=== PATIENT | male | born 1985 | race African-American/Black ===

== ENCOUNTER 2023-11-12 09:33 | Inpatient (IN) | payer OTHER, SELFPAY ==
[2023-11-12] MEDS ORDERED: NOREPINEPHRINE 8 MG/250 ML-D5W 250 ML ONE (09:51)
[2023-11-12] MEDS ORDERED: Aspirin 300 MG Suppository ONE (09:53)
[2023-11-12] MEDS ORDERED: Fentanyl CADD 100 ML IV SCH ×2 (10:00→16:15)
[2023-11-12 10:04] LABS: #Basophils 0.06 10x3/uL (0.0-0.2); %Basophils 0.5 % (0.0-1.0); %Eosinophils 1.1 % (0.0-10.0); %Lymphocytes 33.7 % (21.0-51.0); %Monocytes 4.9 % (0.0-10.0); %Neutrophils 57.3 % (42.0-75.0); Hematocrit 45.6 % (42.0-52.0); Hemoglobin 14.2 g/dL (14.0-18.0); Mean Corpuscular HGB CONC 31.1 g/dL (32.0-36.0); Mean Corpuscular Hemoglobin 30.6 pg (27.0-31.0); Mean Corpuscular Volume 98.3 fL (78.0-98.0); Mean Platelet Volume 11.2 fL (7.4-10.4); Platelet Count 230 10x3/uL (130-400); Red Blood Cell (RBC) Count 4.64 mill/uL (4.70-6.10)
[2023-11-12 10:14] LABS: Analyzer IN Cardio ER; Base Excess (BEa) -14.9 mEq/L (-2.0 to +3.0); CO2 Tension 48.3 mmHg (35.0-45.0); Calcium, Ionized (arterial) 1.16 mmol/L (1.12-1.30); Carboxyhemoglobin (COHb) 0.3 gm% (0.0-3.0); Hematocrit-ABG 44 % (42.0-52.0); Hemoglobin (Hb) 14.8 g/dL (14.0-18.0); O2 Tension (PaO2), arterial 83.9 mmHg (80.0-100.0); Potassium - ABG Lab 4.24 mmol/L (3.70-5.30)
[2023-11-12 10:17] LABS: ALT (SGPT) 71 U/L (8-55); AST (SGOT) 72 U/L (5-34); Acetaminophen Less than 10 mcg/mL (10.0-30.0); Albumin 3.1 g/dL (3.5-5.0); Alcohol Less than 10.0 mg/dL (Less than 10); Alkaline Phosphatase 53 U/L (40-110); Anion Gap 27 mmol/L (10-20); BUN (Urea Nitrogen) 16 mg/dL (8.9-20.6); Bilirubin, Total 0.5 mg/dL (0.2-1.2); CK (CPK) 619 U/L (30-200); Calc. Creatinine Clearance 0 mL/min (70-130); Calcium 8.1 mg/dL (7.8-10.44); Carbon Dioxide 11 mmol/L (22-29); Chloride 107 mmol/L (98-107); Estimated GFR 48; Globulin 2.6 g/dL (2.4-3.5); Glucose 225 mg/dL (70-105); Lipase 21 U/L (8-78); Magnesium 2.7 mg/dL (1.6-2.6); Potassium 4.4 mmol/L (3.5-5.1); Protein, Total 5.7 g/dL (6.0-8.3); Salicylate Less than 8.0 mg/dL (15.0-30.0); Sodium 141 mmol/L (136-145)
[2023-11-12 10:18] LABS: Actual Bicarbonate (HCO3a) 14.7 mEq/L (22-28); Puncture Site RBA
[2023-11-12 10:19] LABS: ALV-art Gradient 568.725 mmHg (0-20)
[2023-11-12 10:32] LABS: Troponin I 2.362 ng/mL (< 0.028)
[2023-11-12] MEDS ORDERED: Iopamidol 370 76% 100 ML VIAL ONE (10:43)
[2023-11-12 10:46] LABS: INR-International Normal Ratio 1.3; Prothrombin Time 15.9 sec (12.0-14.7)
[2023-11-12 11:26] LABS: Bilirubin Negative (Negative); Blood, Urine 2+ (Negative); CAUTI Indications for Culture Alt mental st,lethar; Clarity Extra Turbid (Clear); Glucose, Urine (Dipstick) 150 mg/dL (Negative); Ketone, Urine Negative (Negative); Leukocyte Negative Leu/uL (Negative); Nitrite Negative (Negative); Protein, Urine (Dipstick) 300 mg/dL (Neg-Trace); RBC/HPF 21-50 HPF (0-3); Specific Gravity, Urine 1.013 (1.002-1.036); Squamous Epithelial None Seen HPF (0-3); Urobilinogen Normal mg/dL (Less than 2)
[2023-11-12] MEDS ORDERED: Acetaminophen 650 MG Suppository PR PRN (11:26)
[2023-11-12] MEDS ORDERED: Ondansetron PF 4 MG/2 ML Vial IVP PRN (11:26)
[2023-11-12 11:28] LABS: Amphetamine Not Detected (NotDetected); Barbiturates Screen Not Detected (NotDetected); Benzodiazepine Screen Not Detected (NotDetected); Cocaine Metabolite Screen Not Detected (NotDetected); Methadone Not Detected (NotDetected); Methamphetamine Not Detected (NotDetected); Opiate Screen Not Detected (NotDetected); Oxycodone Screen Not Detected (NotDetected); Phencyclidine (PCP) Not Detected (NotDetected); THC/Cannabinoid Screen Not Detected (NotDetected); Tricyclic Screen Not Detected (NotDetected)
[2023-11-12] MEDS ORDERED: Dextrose 5% in Water 1,000 ML IV PRN (11:28)
[2023-11-12] MEDS ORDERED: Glucagon 1 MG/ML KIT IM PRN (11:28)
[2023-11-12] MEDS ORDERED: Dextrose 50% Abboject 50 ML SYRINGE SLOW IVP PRN (11:28)
[2023-11-12 11:36] LABS: Sperm/HPF 4+ HPF (None Seen)
[2023-11-12 11:37] LABS: Bacteria/HPF Rare-Few HPF (None Seen)
[2023-11-12 11:38] LABS: Urine Culture Reflex Yes Yes
[2023-11-12 12:37] LABS: Analyzer IN Cardio ER; Base Excess (BEa) -10.3 mEq/L (-2.0 to +3.0); CO2 Tension 31.2 mmHg (35.0-45.0); Calcium, Ionized (arterial) 1.12 mmol/L (1.12-1.30); O2 Tension (PaO2), arterial 270.7 mmHg (80.0-100.0); Potassium - ABG Lab 4.29 mmol/L (3.70-5.30); pH, Arterial 7.295 (7.35-7.45)
[2023-11-12 12:40] LABS: Actual Bicarbonate (HCO3a) 14.8 mEq/L (22-28); Puncture Site RRA
[2023-11-12] MEDS ORDERED: Heparin 10,000 UNITS/ 10 ML VIAL ONE (13:10)
[2023-11-12] MEDS ORDERED: Nitroglycerin 50 MG/250 ML BOT 0 ML ONE (13:10)
[2023-11-12 13:11] LABS: Troponin I 7.351 ng/mL (< 0.028)
[2023-11-12] MEDS: Acetaminophen 325 MG TAB PO SCH (13:37)
[2023-11-12 13:40] LABS: Base Excess (BEa) -8.6 mEq/L (-2.0 to +3.0); Calcium, Ionized (arterial) 1.06 mmol/L (1.12-1.30); Carboxyhemoglobin (COHb) 0.4 gm% (0.0-3.0); Hematocrit-ABG 43 % (42.0-52.0); Hemoglobin (Hb) 14.5 g/dL (14.0-18.0); O2 Tension (PaO2), arterial 233.7 mmHg (80.0-100.0); Potassium - ABG Lab 4.01 mmol/L (3.70-5.30); pH, Arterial 7.398 (7.35-7.45)
[2023-11-12 13:42] LABS: Actual Bicarbonate (HCO3a) 14.1 mEq/L (22-28); CO2 Tension 23.4 mmHg (35.0-45.0); Puncture Site RRA
[2023-11-12] MEDS: Sodium Bicarbonate 150 mEq in Dextrose 5% IV SCH (14:07)
[2023-11-12] MEDS: Sodium Chloride 0.9% 1,000 ML IV SCH (14:07)
[2023-11-12 14:14] LABS: Lactic Acid 5.6 mmol/L (0.5-2.2)
[2023-11-12] MEDS ORDERED: Insulin Lispro 100 UNIT/ML 10 ML VIAL SC PRN ×2 (14:37→14:45)
[2023-11-12 14:46] LABS: Troponin I 10.139 ng/mL (< 0.028)
[2023-11-12] MEDS ORDERED: NOREPINEPHRINE 8 MG/250 ML-D5W 250 ML IVPB SCH (15:15)
[2023-11-12] MEDS ORDERED: Sodium Chloride 0.9% 200 ML IV PRN (15:17)
[2023-11-12] MEDS ORDERED: Fentanyl BOLUS 250 ML IVPB PRN (16:15)
[2023-11-12] MEDS ORDERED: Morphine 2 MG/ML VIAL SLOW IVP PRN (16:15)
[2023-11-12] MEDS ORDERED: DISCONTINUE PREVIOUS NARCOTIC PAIN MEDICATIONS AND BENZODIAZEPINES FS SCH (16:15)
[2023-11-12] MEDS ORDERED: Propofol BOLUS 1,000 MG/100 ML VIAL IV PRN (16:15)
[2023-11-12] MEDS: Sodium Chloride 0.9% 250 ML IV SCH (16:16)
[2023-11-12] MEDS: Lorazepam 2 MG/ML VIAL ONE (16:24)
[2023-11-12] MEDS: Lorazepam 2 MG/ML VIAL SLOW IVP PRN (16:24)
[2023-11-12] MEDS: Amiodarone 450 MG in Dextrose 5% in Water 250 ML IVPB SCH (17:21)
[2023-11-12] MEDS: Propofol 1,000 MG/100 ML VIAL IV PRN (17:27)
[2023-11-12 18:57] LABS: Lactic Acid 2.7 mmol/L (0.5-2.2)
[2023-11-12] MEDS: Heparin 5,000 UNITS/ML VIAL SC SCH (20:26)
[2023-11-12] MEDS: Famotidine/PF 20 mg/2ml Vial SLOW IVP SCH (20:26)
[2023-11-13 04:35] LABS: #Basophils Less than 0.03 10x3/uL (0.0-0.2); #Eosinphils Less than 0.03 10x3/uL (0.0-0.7); %Basophils 0.2 % (0.0-1.0); %Lymphocytes 20.4 % (21.0-51.0); %Monocytes 9.8 % (0.0-10.0); %Neutrophils 69.2 % (42.0-75.0); Hematocrit 43.6 % (42.0-52.0); Hemoglobin 14.6 g/dL (14.0-18.0); Mean Corpuscular HGB CONC 33.5 g/dL (32.0-36.0); Mean Corpuscular Hemoglobin 29.6 pg (27.0-31.0); Mean Corpuscular Volume 88.4 fL (78.0-98.0); Mean Platelet Volume 12.4 fL (7.4-10.4); Platelet Count 200 10x3/uL (130-400); RBC Distribution Width 12.4 % (11.5-14.5); Red Blood Cell (RBC) Count 4.93 mill/uL (4.70-6.10)
[2023-11-13 05:00] LABS: Hemoglobin A1c 5.3 % (4.0-6.0)
[2023-11-13 05:25] LABS: ALT (SGPT) 95 U/L (8-55); AST (SGOT) 101 U/L (5-34); Albumin 2.8 g/dL (3.5-5.0); Alkaline Phosphatase 38 U/L (40-110); Anion Gap 15 mmol/L (10-20); BUN (Urea Nitrogen) 23 mg/dL (8.9-20.6); Bilirubin, Total 0.9 mg/dL (0.2-1.2); Calc. Creatinine Clearance 52 mL/min (70-130); Calcium 7.8 mg/dL (7.8-10.44); Carbon Dioxide 16 mmol/L (22-29); Cardiac Risk 4.4 (Less than 4.5); Chloride 106 mmol/L (98-107); Cholesterol 140 mg/dl (< 200 Desired); Estimated GFR 29; Globulin 2.4 g/dL (2.4-3.5); Glucose 109 mg/dL (70-105); HDL Cholesterol 32 mg/dL (>60 Neg Risk); Magnesium 2.2 mg/dL (1.6-2.6); Potassium 4.2 mmol/L (3.5-5.1); Protein, Total 5.2 g/dL (6.0-8.3); Sodium 133 mmol/L (136-145); Triglycerides 503 mg/dL (Less than 150)
[2023-11-13 07:16] LABS: Actual Bicarbonate (HCO3a) 16.1 mEq/L (22-28); Calcium, Ionized (arterial) 1.06 mmol/L (1.12-1.30); Carboxyhemoglobin (COHb) 0.8 gm% (0.0-3.0); Hematocrit-ABG 45 % (42.0-52.0); Hemoglobin (Hb) 15.3 g/dL (14.0-18.0); O2 Tension (PaO2), arterial 90.9 mmHg (80.0-100.0); Potassium - ABG Lab 4.42 mmol/L (3.70-5.30)
[2023-11-13 07:17] LABS: CO2 Tension 22.1 mmHg (35.0-45.0); Puncture Site RRA
[2023-11-13 07:18] LABS: ALV-art Gradient 166.675 mmHg (0-20)
[2023-11-13] MEDS: Sodium Chloride 0.9% 1,000 ML IV SCH (08:57)
[2023-11-13] MEDS ORDERED: Dexmedetomidine In 0.9 % NaCl 100 ML IVPB SCH (10:00)
[2023-11-13] MEDS: DOBUTamine 500 mg/250 ml 250 ML IVPB SCH (12:27)
[2023-11-13] MEDS ORDERED: VANC IVPB PRN (12:36)
[2023-11-13] MEDS: Acetaminophen 500 MG TAB PER TUBE SCH (12:42)
[2023-11-13] MEDS: cefTRIAXone\\ROCEPHIN 2 GM in Sodium Chloride 0.9% 100 ML IVPB SCH (14:46)
[2023-11-13] MEDS: Vancomycin (BATCH) 2.5 GM in Premix 1 BAG IVPB SCH (14:58)
[2023-11-13] MEDS: Furosemide 40 MG (4 mL) VIAL SLOW IVP SCH (22:09)
[2023-11-14 07:03] LABS: Hematocrit 46.7 % (42.0-52.0); Hemoglobin 15.1 g/dL (14.0-18.0); Mean Corpuscular HGB CONC 32.3 g/dL (32.0-36.0); Mean Corpuscular Hemoglobin 29.9 pg (27.0-31.0); Mean Corpuscular Volume 92.5 fL (78.0-98.0); Mean Platelet Volume 11.5 fL (7.4-10.4); Platelet Count 154 10x3/uL (130-400); RBC Distribution Width 12.8 % (11.5-14.5); Red Blood Cell (RBC) Count 5.05 mill/uL (4.70-6.10)
[2023-11-14 07:12] LABS: Lactic Acid 1.7 mmol/L (0.5-2.2)
[2023-11-14 07:15] LABS: Anion Gap 15 mmol/L (10-20); BUN (Urea Nitrogen) 28 mg/dL (8.9-20.6); Calc. Creatinine Clearance 50 mL/min (70-130); Calcium 8.6 mg/dL (7.8-10.44); Carbon Dioxide 18 mmol/L (22-29); Chloride 111 mmol/L (98-107); Estimated GFR 28; Glucose 137 mg/dL (70-105); Potassium 4.6 mmol/L (3.5-5.1); Sodium 139 mmol/L (136-145)
[2023-11-14] MEDS: Furosemide 40 MG (4 mL) VIAL SLOW IVP SCH (10:01)
[2023-11-14] MEDS: Dexmedetomidine 1,000 MCG in NS 250 mL IVPB SCH (10:06)
[2023-11-14] MEDS: Vancomycin 1 GM in Premix 1 BAG IVPB SCH (14:03)
[2023-11-14] MEDS: Atorvastatin Calcium 40 MG TAB PO SCH (21:02)
[2023-11-15 04:12] VITALS: BMI 36.3
[2023-11-15 07:37] LABS: Vancomycin, Random 21.5 ug/mL (See Comment)
[2023-11-15] MEDS: Carvedilol 3.125 MG TAB PO SCH ×2 (08:10→19:11)
[2023-11-15] MEDS: Famotidine/PF 20 mg/2ml Vial SLOW IVP SCH (08:10)
[2023-11-15 11:34] LABS: #Basophils 0.04 10x3/uL (0.0-0.2); %Basophils 0.4 % (0.0-1.0); %Eosinophils 0.4 % (0.0-10.0); %Lymphocytes 16.4 % (21.0-51.0); %Monocytes 10.3 % (0.0-10.0); %Neutrophils 72.1 % (42.0-75.0); Hematocrit 42.3 % (42.0-52.0); Hemoglobin 13.6 g/dL (14.0-18.0); Mean Corpuscular HGB CONC 32.2 g/dL (32.0-36.0); Mean Corpuscular Hemoglobin 29.8 pg (27.0-31.0); Mean Corpuscular Volume 92.6 fL (78.0-98.0); Mean Platelet Volume 12.2 fL (7.4-10.4); Platelet Count 145 10x3/uL (130-400); RBC Distribution Width 12.7 % (11.5-14.5); Red Blood Cell (RBC) Count 4.57 mill/uL (4.70-6.10)
[2023-11-15 11:53] LABS: Anion Gap 14 mmol/L (10-20); BUN (Urea Nitrogen) 24 mg/dL (8.9-20.6); Calc. Creatinine Clearance 61 mL/min (70-130); Calcium 8.4 mg/dL (7.8-10.44); Carbon Dioxide 22 mmol/L (22-29); Chloride 110 mmol/L (98-107); Estimated GFR 36; Glucose 110 mg/dL (70-105); Magnesium 2.1 mg/dL (1.6-2.6); Potassium 3.6 mmol/L (3.5-5.1); Sodium 142 mmol/L (136-145)
[2023-11-15] MEDS: hydrALAZINE 20 MG/ML VIAL SLOW IVP PRN (15:08)
[2023-11-15] MEDS: Acetaminophen 325 MG TAB PO PRN (15:45)
[2023-11-15] MEDS: Ondansetron ODT 4 MG TAB PO PRN (16:47)
[2023-11-16] MEDS: Famotidine 20 MG TAB PO SCH (08:30)
[2023-11-16] MEDS: Carvedilol 3.125 MG TAB PO SCH (08:36)
[2023-11-16] MEDS: Isosorbide Dinitrate 5 MG TAB PO SCH (20:53)
[2023-11-16] MEDS: hydrALAZINE 25 MG TAB PO SCH (20:53)
[2023-11-17 08:03] VITALS: BMI 36.3
[2023-11-17] MEDS: Carvedilol 6.25 MG TAB PO SCH (09:47)
[2023-11-18 10:37] LABS: #Basophils 0.05 10x3/uL (0.0-0.2); %Basophils 0.6 % (0.0-1.0); %Lymphocytes 15.3 % (21.0-51.0); %Neutrophils 67.7 % (42.0-75.0); Hematocrit 37.7 % (42.0-52.0); Hemoglobin 12.2 g/dL (14.0-18.0); Mean Corpuscular HGB CONC 32.4 g/dL (32.0-36.0); Mean Corpuscular Volume 92.6 fL (78.0-98.0); Mean Platelet Volume 11.6 fL (7.4-10.4); Platelet Count 161 10x3/uL (130-400); RBC Distribution Width 12.3 % (11.5-14.5); Red Blood Cell (RBC) Count 4.07 mill/uL (4.70-6.10)
[2023-11-18 10:51] LABS: Anion Gap 10 mmol/L (10-20); BUN (Urea Nitrogen) 15 mg/dL (8.9-20.6); Calc. Creatinine Clearance 93 mL/min (70-130); Calcium 8.5 mg/dL (7.8-10.44); Carbon Dioxide 24 mmol/L (22-29); Chloride 107 mmol/L (98-107); Estimated GFR 59; Glucose 146 mg/dL (70-105); Potassium 3.6 mmol/L (3.5-5.1); Sodium 137 mmol/L (136-145)
[2023-11-18] MEDS ORDERED: Morphine 2 MG/ML VIAL SLOW IVP PRN (12:47)
[2023-11-18] MEDS: Potassium Chloride 20 MEQ TAB PO SCH (13:54)
[2023-11-18] MEDS: Furosemide 40 MG TAB PO SCH (13:54)
[2023-11-18] MEDS: Cefdinir 300 MG CAP PO SCH (20:25)
[2023-11-19 05:10] LABS: #Basophils 0.05 10x3/uL (0.0-0.2); %Basophils 0.6 % (0.0-1.0); %Lymphocytes 20.7 % (21.0-51.0); %Monocytes 12.5 % (0.0-10.0); %Neutrophils 59.9 % (42.0-75.0); Hematocrit 40.5 % (42.0-52.0); Hemoglobin 12.9 g/dL (14.0-18.0); Mean Corpuscular HGB CONC 31.9 g/dL (32.0-36.0); Mean Corpuscular Hemoglobin 29.5 pg (27.0-31.0); Mean Corpuscular Volume 92.7 fL (78.0-98.0); Mean Platelet Volume 12.7 fL (7.4-10.4); Platelet Count 191 10x3/uL (130-400); RBC Distribution Width 12.4 % (11.5-14.5); Red Blood Cell (RBC) Count 4.37 mill/uL (4.70-6.10)
[2023-11-19 06:09] LABS: Anion Gap 14 mmol/L (10-20); BUN (Urea Nitrogen) 17 mg/dL (8.9-20.6); Calc. Creatinine Clearance 80 mL/min (70-130); Calcium 8.8 mg/dL (7.8-10.44); Carbon Dioxide 27 mmol/L (22-29); Chloride 107 mmol/L (98-107); Estimated GFR 50; Glucose 89 mg/dL (70-105); Potassium 3.7 mmol/L (3.5-5.1); Sodium 144 mmol/L (136-145)
[2023-11-19] MEDS: Furosemide 20 MG TAB PO SCH (09:26)
[2023-11-19] MEDS: Potassium Chloride 20 MEQ TAB PO SCH (09:26)
[2023-11-19] MEDS: Pantoprazole DR 40 MG TAB PO SCH (09:27)
[2023-11-19] MEDS: Lidocaine 4% Patch TD SCH (09:27)
[2023-11-19] MEDS: traMADol HCl 50 MG TAB PO PRN (20:37)
[2023-11-19] MEDS: Transdermal Patch Removal TOP SCH (20:41)
[2023-11-20] MEDS: Carvedilol 6.25 MG TAB PO SCH (10:15)
[2023-11-20] MEDS: Sacubitril 24MG/Valsartan 26 MG TAB PO SCH (10:15)
[2023-11-20] MEDS ORDERED: Gentamicin 80 MG/2 ML VIAL ONE (10:25)
[2023-11-20] MEDS ORDERED: CEFAZOLIN 2 GM VIAL ONE (10:26)
[2023-11-20] MEDS: Vancomycin (BATCH) 1.5 GM in Premix 1 BAG IVPB SCH (11:21)
[2023-11-20] MEDS ORDERED: Propofol 500 MG/50 ML VIAL ONE (12:49)
[2023-11-20] MEDS ORDERED: Midazolam HCl 2 mg/2 ml Vial ONE (12:49)
[2023-11-20] MEDS ORDERED: fentaNYL 50 mcg/mL 1 mL Vial ONE ×3 (12:49→14:52)
[2023-11-20] MEDS ORDERED: Dexamethasone 20 MG/5 ML VIAL ONE (13:32)
[2023-11-20] MEDS: Furosemide 40 MG TAB PO SCH (13:43)
[2023-11-20] MEDS ORDERED: PROPOFOL 20 ML ONE (14:19)
[2023-11-20] MEDS ORDERED: Iopamidol 370 76% 100 ML VIAL ONE (14:55)
[2023-11-20] MEDS: Isosorbide Dinitrate 5 MG TAB PO SCH (20:48)
[2023-11-21 12:05] VITALS: BP 117/78; TEMP 98.2
== END 2023-11-21 15:13 | disposition home or self-care (01) | DRG 275 ==
LOC: ERS 09:33 → EEVIPCON 11:18 → ERHOLD 11:18 → CCU 13:08 → 2SE 11-17 02:15
PROVIDERS: ADMIT Hospitalist; ATTEND Internal Medicine
PROC: 4A023N7 Measurement of Cardiac Sampling and Pressure, Left Heart, Percutaneous Approach (ICD-10-PCS; 2023-11-12)
PROC: B2111ZZ Fluoroscopy of Multiple Coronary Arteries using Low Osmolar Contrast (ICD-10-PCS; 2023-11-12)
PROC: B2151ZZ Fluoroscopy of Left Heart using Low Osmolar Contrast (ICD-10-PCS; 2023-11-12)
PROC: 5A12012 Performance of Cardiac Output, Single, Manual (ICD-10-PCS; 2023-11-12)
PROC: 5A1221J Performance of Cardiac Output, Continuous, Automated (ICD-10-PCS; 2023-11-12)
PROC: 0BH17EZ Insertion of Endotracheal Airway into Trachea, Via Natural or Artificial Opening (ICD-10-PCS; 2023-11-12)
PROC: 4A133R1 Monitoring of Arterial Saturation, Peripheral, Percutaneous Approach (ICD-10-PCS; 2023-11-12)
PROC: 3E033XZ Introduction of Vasopressor into Peripheral Vein, Percutaneous Approach (ICD-10-PCS; 2023-11-12)
PROC: 5A1945Z Respiratory Ventilation, 24-96 Consecutive Hours (ICD-10-PCS; 2023-11-12)
PROC: 0WH Anatomical Regions, General, Insertion (ICD-10-PCS; principal; 2023-11-20)
PROC: 0JH608Z Insertion of Defibrillator Generator into Chest Subcutaneous Tissue and Fascia, Open Approach (ICD-10-PCS; 2023-11-20)
PROC: 3E0102A Introduction of Anti-Infective Envelope into Subcutaneous Tissue, Open Approach (ICD-10-PCS; 2023-11-20)
DX: I49.01 Ventricular fibrillation (principal); G93.41 Metabolic encephalopathy; I21.4 Non-ST elevation (NSTEMI) myocardial infarction; J96.01 Acute respiratory failure with hypoxia; I50.23 Acute on chronic systolic (congestive) heart failure; E87.20 Acidosis, unspecified; N17.9 Acute kidney failure, unspecified; E87.1 Hypo-osmolality and hyponatremia; I13.0 Hypertensive heart and chronic kidney disease with heart failure and stage 1 through stage 4 chronic kidney disease, or unspecified chronic kidney disease; I46.9 Cardiac arrest, cause unspecified; I42.0 Dilated cardiomyopathy; N18.31 Chronic kidney disease, stage 3a; G47.33 Obstructive sleep apnea (adult) (pediatric); R45.1 Restlessness and agitation; F19.10 Other psychoactive substance abuse, uncomplicated; Z91.148 Patient's other noncompliance with medication regimen for other reason; Z79.899 Other long term (current) drug therapy; Z71.51 Drug abuse counseling and surveillance of drug abuser
CPT/HCPCS: 33249; 36415; 36416; 36600; 51702; 70450; 71045; 75820; 80048; 80053; 80061; 80202; 80306; 80307; 81001; 82550; 82805; 83036; 83605; 83690; 83735; 83880; 84443; 84484; 85025; 85027; 85610; 85730; 87040; 87086; 93005; 93010; 93306; 93458; 93798; 94002; 94003; 94760; 96365; 96366; 96368; 97139; 99292; C1721; C1763; C1769; C1887; C1894; C1895; C1898; J0282; J0360; J0696; J1100; J1250; J1580; J1644; J1940; J2060; J2250; J2704; J3010; J3370; J3370-JW; J3490; J7050; J7070; Q0162; Q9967; S0028

== ENCOUNTER 2024-05-30 17:09 | Emergency (ER) | payer OTHER ==
[~2024-05-30 17:09] MED LIST: Iopamidol-370 76% 500 ML MDV (1 ML CHARGE) ONE
[2024-05-30 17:40] LABS: #Basophils 0.05 10x3/uL (0.0-0.2); %Basophils 0.6 % (0.0-1.0); %Eosinophils 5.1 % (0.0-10.0); %Lymphocytes 28.7 % (21.0-51.0); %Neutrophils 55.1 % (42.0-75.0); Hematocrit 38.4 % (42.0-52.0); Hemoglobin 12.2 g/dL (14.0-18.0); Mean Corpuscular HGB CONC 31.8 g/dL (32.0-36.0); Mean Corpuscular Hemoglobin 29.2 pg (27.0-31.0); Mean Corpuscular Volume 91.9 fL (78.0-98.0); Platelet Count 177 10x3/uL (130-400); RBC Distribution Width 13.6 % (11.5-14.5); Red Blood Cell (RBC) Count 4.18 mill/uL (4.70-6.10)
[2024-05-30] MEDS ORDERED: Tenecteplase 50 MG ONE (18:00)
[2024-05-30 18:11] LABS: Troponin I 0.317 ng/mL (< 0.028)
[2024-05-30 18:21] LABS: INR-International Normal Ratio 1.3; PTT 25.7 sec (22.9-36.1)
[2024-05-30 18:43] LABS: ALT (SGPT) 57 U/L (Less than 45); AST (SGOT) 60 U/L (11-34); Albumin 2.8 g/dL (3.1-4.5); Alkaline Phosphatase 68 U/L (40-110); Anion Gap 13 mmol/L (10-20); BUN (Urea Nitrogen) 17 mg/dL (8.9-20.6); Bilirubin, Total 0.5 mg/dL (0.3-1.2); Calc. Creatinine Clearance 0 mL/min (70-130); Calcium 8.6 mg/dL (7.8-10.44); Carbon Dioxide 19 mmol/L (22-29); Chloride 103 mmol/L (98-107); Estimated GFR 72; Globulin 3.1 g/dL (2.4-3.5); Glucose 122 mg/dL (70-105); Potassium 3.9 mmol/L (3.5-5.1); Protein, Total 5.9 g/dL (6.0-8.3); Sodium 131 mmol/L (136-145)
== END 2024-05-30 19:09 | disposition short-term general hospital (02) ==
LOC: ERS 17:09
DX: I66.02 Occlusion and stenosis of left middle cerebral artery (principal)
CPT/HCPCS: 70450; 70496; 70498; 71045; 80053; 84484; 85025; 85610; 85730; 93005; 94760; 96374; J3101; Q9967